=== PATIENT | male | born 1950 | race Caucasian/White ===

== ENCOUNTER 2023-03-04 07:49 | Outpatient (CLI) | payer MEDICARE, MEDICAID ==
[~2023-03-04 07:49] MED LIST: AMI200T PO; ASPI-611 PO; ATOR40TA PO; DOCU100C40 PO; FENO145T26 PO; HYDR-3972 PO; LOP25T PO; TRIUMEQ PO; ZOLP10TA5 PO
== END 2023-03-04 23:59 | disposition home or self-care (01) ==
LOC: RAD 07:49
PROVIDERS: ATTEND Family Medicine
DX: M47.812 Spondylosis without myelopathy or radiculopathy, cervical region (principal); M48.02 Spinal stenosis, cervical region; M41.82 Other forms of scoliosis, cervical region; M50.222 Other cervical disc displacement at C5-C6 level; M25.78 Osteophyte, vertebrae
CPT/HCPCS: 72141